=== PATIENT | female | born 1960 | race Caucasian/White ===

== ENCOUNTER 2016-06-25 12:37 | Emergency (ER) | payer OTHER ==
[~2016-06-25] VITALS: Ht 147.3 cm; Wt 73.9 kg
--- NOTE | 2016-06-25 12:39 | NUR ---
DR STARKEY EVALUATING PT UPON ARRIVAL TO ER.
[2016-06-25 12:44] VITALS: BP 132/73; PULSE 100; RESP 22; TEMP 98.8; O2SAT 98
--- NOTE | 2016-06-25 12:50 | NUR ---
Pt placed to ER waiting room in wheelchair in stable condition. Son at side.
--- NOTE | 2016-06-25 12:55 | NUR ---
Tessy edmond in [facility] - 06/25/16 at [address] STARKEY EVALUATING PT IN [facility]
--- NOTE | 2016-06-25 13:01 | NUR ---
PT DEMANDING A BED AT THIS TIME AND STATES SHE NEEDS A LOT OF PAIN MEDICATION. EXPLAINED TO PT THAT I COULD OFFER HER TYLENOL OR MOTRIN, PT STATES SHE ALREADY TOOK A FEW NORCOS THIS MORNING AND WANTS SOMETHING STRONGER. EXPLAINED TO PT THAT WE DO NOT HAVE ANY OPEN BEDS AT THIS TIME, BUT THE WAIT WILL NOT BE TOO MUCH LONGER. PT ACCEPTED TO TAKE MOTRIN, WILL WAIT IN WAITING ROOM. SON AT BEDSIDE GIVING PT COMFORT.
[2016-06-25] MEDS ORDERED: IBUPROFEN 600 MG TABLET ONE (13:14)
--- NOTE | 2016-06-25 13:15 | NUR ---
PT STATES SHE WANTS DILAUDID OR SOME OTHER STRONG MEDICATION LIKE NORCO. EXPLAINED TO PT THAT WE CAN NOT GIVE NARCOTICS WITHOUT BEING CLOSELY MONITORED. PT STATES SHE MIGHT LEAVE. SON WITH PT.
--- NOTE | 2016-06-25 13:19 | NUR ---
PT DECIDED TO LEAVE, PT ELOPED
--- NOTE | 2016-06-25 13:19 | NUR ---
Note sharrijennifer in [facility] - 06/25/16 at 1433 by ELADIO PT STATES THAT SHE IS UNWILLING TO WAIT ANY FURTHER AND WILL GO TO [facility] TO BE TREATED. PT STATES THAT SHE NEEDS EXTREMELY STRONG MEDICATION RIGHT NOW. WAITING FOR AN OPEN BED IN ER. SON WITH PT AT THIS TIME. ENCOURAGED PT TO WAIT, PT DECIDED TO LEAVE WITHOUT BEING SEEN.
== END 2016-06-25 13:19 | disposition left against medical advice (07) ==
LOC: SED 12:37
DX: G89.29 Other chronic pain (principal); R52 Pain, unspecified; Z53.20 Procedure and treatment not carried out because of patient's decision for unspecified reasons
CPT/HCPCS: 99283